=== PATIENT | male | born 1975 | race Caucasian/White ===

== ENCOUNTER 2025-02-28 06:17 | Day surgery (SDC) | payer OTHER, SELFPAY ==
[2025-02-28 08:20] VITALS: BP 137/79
[2025-02-28 08:22] VITALS: BMI 50.9
[2025-02-28 08:25] VITALS: BMI 50.9
[2025-02-28 10:21] VITALS: BP 131/74
[2025-02-28 10:30] VITALS: BP 117/95
[2025-02-28 10:45] VITALS: BP 135/66
== END 2025-02-28 10:55 | disposition home or self-care (01) ==
LOC: GI 06:17
PROVIDERS: ATTENDING PHYSICIAN Internal Medicine Gastroenterology
DX: Z12.11 Encounter for screening for malignant neoplasm of colon (principal); K57.30 Diverticulosis of large intestine without perforation or abscess without bleeding; K64.8 Other hemorrhoids; Z86.0101 Personal history of adenomatous and serrated colon polyps; D12.0 Benign neoplasm of cecum; D12.4 Benign neoplasm of descending colon; D12.5 Benign neoplasm of sigmoid colon; D12.3 Benign neoplasm of transverse colon
CPT/HCPCS: 45385; 45380; 88305